=== PATIENT | female | born 1990 | race Caucasian/White ===

== ENCOUNTER 2025-04-20 23:46 | Emergency (ER) | payer SELFPAY ==
[~2025-04-20] VITALS: Ht 165.1 cm; Wt 66.0 kg
[2025-04-20 23:50] VITALS: O2SAT 99
[2025-04-20 23:52] VITALS: TEMP 36.8
[2025-04-21] MEDS: ACETAMINOPHEN 325MG TABLET PO ONE (00:13)
[2025-04-21] MEDS ORDERED: IBUP-1455 MT (01:43)
[2025-04-21 02:12] VITALS: BP 102/62; PULSE 60; RESP 16; O2SAT 100
== END 2025-04-21 02:16 | disposition home or self-care (01) ==
LOC: ER 23:46
DX: S00.83XA Contusion of other part of head, initial encounter (principal); X58.XXXA Exposure to other specified factors, initial encounter; Y93.89 Activity, other specified; Y92.89 Other specified places as the place of occurrence of the external cause; Y99.8 Other external cause status
CPT/HCPCS: 70486; 81025; 99284